=== PATIENT | female | born 1980 | race Caucasian/White ===

== ENCOUNTER 2016-07-12 16:39 | Emergency (ER) | payer OTHER ==
[2016-07-12 19:07] VITALS: BP 139/90
--- NOTE | 2016-07-12 19:18 | UC ---
FLU HPI - HPI Summary HPI Summary: 1 day history of headache, myalgias, cough. Using ibuprofen. Cough is not severe , no shortness of breath, some sinus pressure. - History of Current Complaint Chief Complaint: UCGeneralIllness Stated Complaint: FEVER,BODY ACHES Time Seen by Provider: 07/12/16 19:07 Hx Obtained From: Patient Hx Last Menstrual Period: 06/21/16 Onset/Duration: Gradual Onset, Lasting Days - 2 Severity Currently: Moderate Severity Initially: Mild Associated Signs & Symptoms: Positive: Fever, Myalgia, Cough - Risk Factors Influenza Risk Factors: Negative - Allergy/Home Medications Allergies/Adverse Reactions: Allergies Allergy/AdvReac Type Severity Reaction Status Date / Time Adhesive Tape Allergy Rash Verified 07/12/16 19:02 Bee Venom Allergy Shortness Verified 07/12/16 19:02 of Breath Latex Allergy Rash Verified 07/12/16 19:02 PMH/Surg Hx/FS Hx/Imm Hx Previously Healthy: Yes - Surgical History Surgical History: Yes Surgery Procedure, Year, and Place: Cholecystectomy, [place]; Abdominal Herniorrhaphy, [place]; and Tubal Ligation, [place] - Family History Known Family History: Positive: Hypertension, Diabetes - Social History Occupation: Employed Full-time - car clerk pullman with [employer] Lives: With Family Alcohol Use: Occasionally Substance Use Type: None Smoking Status (MU): Former Smoker Type: Cigarettes Amount Used/How Often: 2 PPD Length of Time of Smoking/Using Tobacco: 10 years Have You Smoked in the Last Year: No When Did the Patient Quit Smoking/Using Tobacco: 2008 - Immunization History Most Recent Influenza Vaccination: Not the Season Review of Systems Constitutional: Fever, Fatigue Skin: Negative Eyes: Negative ENT: Sore Throat Respiratory: Cough Cardiovascular: Negative Gastrointestinal: Negative Genitourinary: Negative Motor: Negative Neurovascular: Negative Musculoskeletal: Negative Neurological: Headache Psychological: Negative All Other Systems Reviewed And Are Negative: Yes Physical Exam Triage Information Reviewed: Yes Appearance: Ill-Appearing - looks mildly unwell, Obese Vital Signs: Initial Vital Signs Temp 98.6 F 07/12/16 19:03 Pulse 77 07/12/16 19:03 Resp 16 07/12/16 19:03 BP 139/90 07/12/16 19:03 Pulse Ox 99 07/12/16 19:03 Eyes: Positive: Conjunctiva Clear ENT: Positive: Pharynx normal Neck: Positive: Supple, Nontender Respiratory: Positive: Lungs clear, Normal breath sounds Cardiovascular: Positive: RRR, No Murmur Abdomen Description: Positive: Nontender, No Organomegaly Musculoskeletal Exam: Normal Neurological Exam: Normal Psychological Exam: Normal Skin Exam: Normal Flu Course/Dx - Course Course Of Treatment: symptomatic treatment of viral illness. - Differential Dx/Diagnosis Differential Diagnosis/HQI/PQRI: Bronchitis, Influenza, Upper Respiratory Infection Provider Diagnoses: flu like illness. Discharge - Discharge Plan Condition: Stable Disposition: HOME Patient Education Materials: Influenza (ED) Referrals: Singh Finney MD [Primary Care Provider] - Additional Instructions: As discussed, there is no evidence of bacterial illness. Continue symptomatic treatment with iv fluids and high intake of fluids. I suggest that you rest at home for the next several days.
== END 2016-07-12 19:36 | disposition home or self-care (01) ==
LOC: UCCORT 16:39
DX: J11.1 Influenza due to unidentified influenza virus with other respiratory manifestations (principal); Z87.891 Personal history of nicotine dependence
CPT/HCPCS: 99211; G0463

== ENCOUNTER 2019-02-25 11:24 | Emergency (ER) | payer OTHER ==
[2019-02-25 12:48] VITALS: BP 130/74
--- NOTE | 2019-02-25 13:42 | UC ---
Skin Complaint HPI - HPI Summary HPI Summary: itchy rash on both arms for about 3 weeks---itches so bad she digs it to scabs-- -no new exposures or medications no one at home with similar issues-no streaking fevers or chills - History of Current Complaint Chief Complaint: UCRash Time Seen by Provider: 02/25/19 13:31 Stated Complaint: RASH Hx Obtained From: Patient Hx Last Menstrual Period: early Feb. ?: No Onset/Duration: Gradual Onset, Still Present Timing: Constant Onset Severity: Moderate Current Severity: Moderate Location: Diffuse - both arms Character: Pruritus, Redness Aggravating Factor(s): Nothing Alleviating Factor(s): Nothing Associated Signs & Symptoms: Positive: Rash - Allergy/Home Medications Allergies/Adverse Reactions: Allergies Allergy/AdvReac Type Severity Reaction Status Date / Time Adhesive Tape Allergy Rash Verified 02/25/19 12:49 bee venom protein (honey bee) Allergy Shortness Verified 02/25/19 12:49 of Breath latex Allergy Rash Verified 02/25/19 12:49 Home Medications: Home Medications Arthritis Cream 1 dose TOPICAL TID 02/25/19 [History Confirmed 02/25/19] Glucosamine Sulfate Dipot Chlr [Glucosamine] 500 mg PO QPM 02/25/19 [History Confirmed 02/25/19] Losartan/Hydrochlorothiazide [Losartan-Hctz 50-12.5 mg Tab] 1 each PO QAM [History Confirmed 02/25/19] Multivitamin [Multivitamins] 1 each PO DAILY 02/25/19 [History Confirmed ] Phentermine HCl 15 mg PO QAM 02/25/19 [History Confirmed 02/25/19] diphenhydrAMINE HCl [Benadryl Allergy] 50 mg PO QPM PRN 02/25/19 [History Confirmed 02/25/19] PMH/Surg Hx/FS Hx/Imm Hx Previously Healthy: No Cardiovascular History: Hypertension - Surgical History Surgical History: Yes Surgery Procedure, Year, and Place: Cholecystectomy, ; Abdominal Herniorrhaphy, ; and Tubal Ligation, - Family History Known Family History: Positive: Hypertension, Diabetes - Social History Occupation: Employed Full-time Lives: With Family Alcohol Use: Rare Substance Use Type: None Smoking Status (MU): Former Smoker Type: Cigarettes Amount Used/How Often: 2 PPD Length of Time of Smoking/Using Tobacco: 10 years Have You Smoked in the Last Year: No When Did the Patient Quit Smoking/Using Tobacco: 2008 - Immunization History Most Recent Influenza Vaccination: Not the Season Review of Systems All Other Systems Reviewed And Are Negative: Yes Constitutional: Positive: Negative Skin: Positive: Rash, Other - itching scabed areas in various stages of healing Eyes: Positive: Negative ENT: Positive: Negative Respiratory: Positive: Negative Cardiovascular: Positive: Negative Gastrointestinal: Positive: Negative Genitourinary: Positive: Negative Motor: Positive: Negative Neurovascular: Positive: Negative Musculoskeletal: Positive: Negative Neurological: Positive: Negative Psychological: Positive: Negative Is Patient Immunocompromised?: No Physical Exam Triage Information Reviewed: Yes Appearance: Well-Appearing, No Pain Distress, Well-Nourished Vital Signs: Initial Vital Signs Temp 99.5 F 02/25/19 12:38 Pulse 66 02/25/19 12:38 Resp 20 02/25/19 12:38 BP 130/74 02/25/19 12:38 Pulse Ox 100 02/25/19 12:38 Vital Signs Reviewed: Yes Eye Exam: Normal Eyes: Positive: Conjunctiva Clear ENT Exam: Normal ENT: Positive: Normal ENT inspection, Hearing grossly normal. Negative: Nasal congestion, Trismus, Muffled voice, Hoarse voice, Sinus tenderness Dental Exam: Normal Neck exam: Normal Neck: Positive: Supple, Nontender Respiratory Exam: Normal Respiratory: Positive: No respiratory distress, No accessory muscle use Cardiovascular Exam: Normal Cardiovascular: Positive: Pulses Normal, Brisk Capillary Refill Musculoskeletal Exam: Normal Musculoskeletal: Positive: Strength Intact, ROM Intact, No Edema Neurological Exam: Normal Neurological: Positive: Alert, Muscle Tone Normal Psychological Exam: Normal Psychological: Positive: Normal Response To Family Skin Exam: Other Skin: Positive: Other - discrete raaised red areas that she itches to the points of scabbing Course/Dx - Course Course Of Treatment: mild soap and water wash, bactroban, keflex and prednisone may continue to use benadryl follow with pcp if fails to resolve or returns - Diagnoses Provider Diagnosis: Contact dermatitis, Folliculitis Discharge ED - Sign-Out/Discharge Documenting (check all that apply): Patient Departure All imaging exams completed and their final reports reviewed: No Studies - Discharge Plan Condition: Stable Disposition: HOME Prescriptions: Cephalexin CAP* [Keflex CAP*] 500 mg PO QID #20 cap Mupirocin 2% OINT* [Bactroban 2 % Oint*] 1 applic TOPICAL BID #1 tube predniSONE TAB* [Deltasone 20 MG TAB*] 20 mg PO DAILY #9 tab Patient Education Materials: Contact Dermatitis (ED), Folliculitis (ED) Referrals: Maritza Mc PA [Primary Care Provider] - 1 Week - Billing Disposition and Condition Condition: STABLE Disposition: Home
== END 2019-02-25 13:56 | disposition home or self-care (01) ==
LOC: UCCORT 11:24
DX: L25.9 Unspecified contact dermatitis, unspecified cause (principal); L73.9 Follicular disorder, unspecified; I10 Essential (primary) hypertension; Z91.030 Bee allergy status; Z91.040 Latex allergy status; Z91.048 Other nonmedicinal substance allergy status; Z87.891 Personal history of nicotine dependence
CPT/HCPCS: 99212; G0463